=== PATIENT | female | born 1960 | race Caucasian/White ===

== ENCOUNTER → 2023-12-30 11:14 | Outpatient (REF) | payer OTHER, SELFPAY | LOC: DHCBS HW 11:14 | PROVIDERS: ATTENDING PHYSICIAN Nuclear Medicine Nuclear Cardiology; FAMILY PHYSICIAN Family Medicine | DX: E78.2 Mixed hyperlipidemia (principal); I42.9 Cardiomyopathy, unspecified; I35.1 Nonrheumatic aortic (valve) insufficiency; I35.0 Nonrheumatic aortic (valve) stenosis | CPT/HCPCS: 93306 ==